=== PATIENT | male | born 1970 | race Caucasian/White ===

== ENCOUNTER 2023-08-10 11:23 | Emergency (ER) | payer OTHER, BC, SELFPAY ==
[2023-08-10] VITALS (10 sets, daily range): BP systolic 111–130; BP diastolic 64–77; PULSE 54–63; RESP 10–18; TEMP 36.6–36.7; O2SAT 94–100; BMI 29.6
--- NOTE | 2023-08-10 11:29 | RAD_ITS ---
STUDY: X-RAY - LEFT HAND REASON FOR EXAM: Male, 52 years old. Injury. TECHNIQUE: 4 views of the left hand. COMPARISON: None. FINDINGS: There are 2 partially threaded cannulated screws in the distal radius. Normal radiocarpal articulation. Normal distal radioulnar joint. Normal visualized carpal bones. Normal carpal articulations. There is mild degenerative arthrosis of the carpometacarpal (CMC) articulation of the thumb. Normal second through fifth carpometacarpal joints. Normal first through fourth metacarpals. There are comminuted fractures of the fifth metacarpal head/neck as well as base of the fifth proximal phalanx. There is dorsomedial subluxation/dislocation at the fifth MCP joint. Normal metacarpophalangeal joint of the thumb. Normal interphalangeal joint of the thumb. Normal proximal and distal phalanges of the thumb. Normal metacarpophalangeal joints of the second through fourth fingers. Normal proximal and distal interphalangeal joints of the second through fourth fingers. Normal phalanges of the second through fourth fingers. There is soft tissue swelling of the fifth digit. RAD/Hand Min 3 Views IMPRESSION: Comminuted fractures of the fifth metacarpal head/neck as well as base of the fifth proximal phalanx. Dorsomedial subluxation/dislocation at the fifth MCP joint. Soft tissue swelling of the fifth digit. Electronically Signed: Rafat Tomlin MD at 12:23 EDT ,
[2023-08-10] MEDS: HYDROmorphone 1 MG/ML Syringe IV ×3 (11:39→18:21)
[2023-08-10] MEDS: Ondansetron 4 MG/2 ML Vial IV (11:40)
[2023-08-10 11:46] LABS: Absolute Lymphocyte Count 1.82 X10^3/uL (0.83-4.51); Absolute Neutrophil Count 3.2 X10^3/uL (2.0-7.7); Basophil# 0.03 X10^3/uL; Basophil% 0.5 % (0-1); Eosinophil# 0.17 X10^3/uL; Hematocrit 39.4 % (40-54); Hemoglobin 12.9 g/dL (13.0-16.5); Lymphocyte # 1.82 X10^3/ul (0.83-4.51); Lymphocyte % 31.9 % (19-41); Mean Corp Hgb Conc 32.7 g/dL (32-36); Mean Corpuscular Hgb 28.8 pg (27.0-32.0); Mean Corpuscular Volume 87.9 fL (80-94); Mean Platelet Vol. 9.3 fl (6.2-12.0); Monocyte# 0.45 X10^3/uL; Monocyte% 7.9 % (0-10); NRBC Flagged by Analyzer 0 % (0-5); Neutrophil # 3.21 X10^3/uL (2.7-7.7); Neutrophil % 56.3 % (47-70); Platelet Count 262 K/mm3 (150-450); RBC Distribution Width CV 13.6 % (11.6-14.6); RBC Distribution Width SD 43.8 fl (35.1-43.9); Red Blood Count 4.48 M/mm3 (4.6-6.2); White Blood Count 5.7 K/mm3 (4.4-11.0)
[2023-08-10] MEDS: Cefazolin 1 GM/50 ML BAG IV (11:49)
[2023-08-10] MEDS: 0.9% Normal Saline (1000mL) 1,000 ML 999 ML IV (11:52)
--- NOTE | 2023-08-10 11:54 | EX.ED.GENINJ ---
HPI History of Present Illness Chief Complaint: Trauma Informant: patient and EMS Narrative Narrative: 52-year-old male presenting to the emergency room with left hand trauma. Patient was at work today at [employer] when he got his hand caught between a forklift and the metal cage. Notes inability to move the left little finger. He has some flexion of the ring finger. He denies symptomology of the long index or thumb finger. He notes no symptoms from the wrist proximally. He is not on a blood thinner. He does have a history of hypertension. He is not a diabetic. Patient is on Eliquis due to recurrent DVT Tetanus Immunization: <5 years [facility] Medical History (Updated 08/10/23 @ 13:[address] Ashwin Ya DO) Recurrent deep vein thrombosis (DVT) Hypertension Home Medications ?Medication ?Instructions ?Recorded ?Last Taken ?Type bupropion HCl 100 mg tablet,12 hr 100 mg PO ONCE 02/24/17 Unknown History sustained-release (Wellbutrin SR) lisinopril 20 mg tablet 20 mg PO ONCE 02/24/17 Unknown History metoprolol tartrate 25 mg tablet 25 mg PO ONCE 02/24/17 Unknown History apixaban 5 mg tablet (Eliquis) 5 mg PO BID 08/10/23 Unknown History Allergy/AdvReac Type Severity Reaction Status Date / Time No Known Allergies Allergy Verified 08/10/23 11:29 Social History Smoking Status: Former smoker quit date: 02/08/99 pack-years: 16 alcohol intake: current ROS ROS ED Constitutional Constitutional ED: Denies chills or weight loss Eyes Eyes: Denies change in vision or diplopia ENT ENT ED: Denies ear pain, rhinorrhea or sore throat Cardiovascular Cardiovascular: Denies chest pain, orthopnea, palpitations or racing heartbeat Respiratory/Chest Respiratory/Chest: Denies cough, dyspnea or orthopnea Gastrointestinal Gastrointestinal: Denies abdominal pain, diarrhea, nausea or vomiting Genitourinary Genitourinary ED: Denies dysuria, hematuria or urinary frequency Musculoskeletal Musculoskeletal: Reports other Details: See history of present illness ; Denies arthralgias or myalgias Integumentary Denies abscess or rash Neurologic Neurologic: Denies headache(s) or weakness Psychiatric Psychiatric: Denies anxiety, depression, suicidal ideation or suicidal thoughts Endocrine Endocrinology: Denies polydipsia, polyphagia or polyuria Allergic/Immunologic Allergic/Immunologic ED: Denies mouth swelling, tongue swelling or urticaria EXAM Physical Exam Narrative Exam Narrative: Patient appears in pain Const Vital Signs: 08/10/23 11:24 08/10/23 11:37 08/10/23 12:23 Temperature 98 F Temperature Source Temporal Pulse Rate 63 59 L Respiratory Rate 13 15 Respiratory Effort Normal Respiratory Depth Normal Respiratory Pattern Normal Blood Pressure 111/67 118/71 Blood Pressure Mean 81 86 Pulse Ox 97 96 Oxygen Delivery Method Room Air Room Air Room Air 08/10/23 13:10 08/10/23 14:00 08/10/23 15:00 Temperature Temperature Source Pulse Rate 54 L 56 L 61 Respiratory Rate 10 L 12 18 Respiratory Effort Respiratory Depth Respiratory Pattern Blood Pressure 122/74 H 130/72 H 127/77 H Blood Pressure Mean 90 91 93 Pulse Ox 98 98 100 Oxygen Delivery Method Room Air Room Air Positive well nourished and well developed General Appearance ED: well developed HEENT Reports normocephalic, head/scalp atraumatic and moist mucous membranes Eyes PERRL and EOMs intact bilaterally Neck no lymphadenopathy, supple and no JVD Resp normal respiratory effort and clear to auscultation bilaterally Cardio regular rate, regular rhythm and no murmurs GI normal to inspection, nondistended, normoactive bowel sounds and non-tender Palpation: soft Back/Spine no CVA tenderness and normal ROM Extremity Extremity Narrative: Left hand demonstrates about a 6 cm flap laceration along the mid fifth metacarpal extending down onto the little finger to about the middle phalanx. There is obvious fracture fragments and dislocation of the little finger. I can visualize flexor superficialis and profundus. Superficialis appears to have been severed with the split going to the middle phalanx still intact. Sensory he is intact. I am able to get some flexion of the ring finger but limited secondary to pain. He still has his ring on (this was removed) there is no active bleeding. The distal middle finger is still pink with good capillary refill. General Extremety ED: Negative for edema General Extremity: Negative for edema Neuro oriented x3 and CN's II-XII intact bilaterally Sensorium / Orientation: alert Motor Exam: strength 5/5 throughout Psych mental status grossly normal Mood & Affect: Negative for depressed or tearful Skin no rashes or lesions noted and no wounds MDM MDM MDM Narrative Medical decision making narrative: Differential diagnosis includes open fracture dislocation tendon disruption neurovascular injury, foreign bodies, crush injury Wet-to-dry dressing was placed. Patient received Ancef Dilaudid and Zofran as well as IV fluids. Hemoglobin 12.9 with a white count of 5.7. Creatinine 1.08 glucose 127. May depend interpretation of the plain films left hand is comminuted open fracture left fifth metacarpal left proximal phalanx. After reviewing the x-rays I spoke with [facility] to start arranging transfer as I feel he would benefit from surgical evaluation. Patient was placed in a well-padded ulnar gutter Ortho-Glass splint. He received additional pain medication. At this point we are awaiting acceptance to trauma center. I spoke initially with [facility]. I spoke with the PICU patient regarding their recommendations and then I spoke with [facility] transfer center. Awaiting consultation with [facility] hand. History & Record Review Discussion w/independent historian: Patient and Significant other Lab Data Attestation: I reviewed the patient's lab results. Labs: Laboratory Results - last 24 hr 08/10/23 11:40 WBC 5.7 RBC 4.48 L Hgb 12.9 L Hct 39.4 L MCV 87.9 MCH 28.8 MCHC 32.7 RDW Std Deviation 43.8 RDW Coeff of Arlet 13.6 Plt Count 262 MPV 9.3 Immature Gran % (Auto) 0.400 Neut % (Auto) 56.3 Lymph % (Auto) 31.9 Pratt % (Auto) 7.9 Eos % (Auto) 3.0 Baso % (Auto) 0.5 Absolute Neuts (auto) 3.2 Absolute Lymphs (auto) 1.82 Nucleated RBC % 0 Sodium 138 Potassium 4.1 Chloride 106 Carbon Dioxide 27.0 Anion Gap 5 BUN 30 H Creatinine 1.08 Estim Creat Clear Calc 99.28 Est GFR (MDRD) Af Amer 92 Est GFR (MDRD) Non-Af 76 BUN/Creatinine Ratio 27.8 H Glucose 127 H Calcium 8.9 Radiography Diagnostic Testing: Clinical Impression(s) from Imaging Studies Hand X-Ray 08/10/23 11:29 IMPRESSION: Comminuted fractures of the fifth metacarpal head/neck as well as base of the fifth proximal phalanx. Dorsomedial subluxation/dislocation at the fifth MCP joint. Soft tissue swelling of the fifth digit. Electronically Signed: Rafat Tomlin MD at 12:23 EDT , Management Discussion w/another healthcare provider: Motion Picture Projectionist Apprentice Discharge Plan Triage Chief Complaint: Trauma ED Provider: Ashwin Ya Dx/Rx/DC Orders Clinical Impression: Open fracture of metacarpal bone of left hand, Open fracture of proximal phalanx of left hand, Flexor tendon laceration of hand with open wound, Anticoagulated Prescriptions: No Action bupropion HCl [Wellbutrin SR] 100 mg tablet extended release 12 hr 100 mg PO ONCE lisinopril 20 mg tablet 20 mg PO ONCE metoprolol tartrate 25 mg tablet 25 mg PO ONCE Eliquis 5 mg tablet 5 mg PO BID Primary Care Provider: Yancy Márquez Referrals: Juan C Malloy PA [Med Staff - Adv Practice Prof] - Print Language: Lithuanian Disposition Disposition: Acute Care Hospital Discharge Location: [facility]
[2023-08-10 11:58] LABS: Anion Gap 5 (5-15); BUN 30 mg/dL (7-18); BUN/Creat Ratio 27.8 RATIO (10-20); Calcium,Total 8.9 mg/dL (8.5-10.1); Chloride 106 mmol/L (98-107); Creatinine, Serum 1.08 mg/dL (0.70-1.30); EST Glomerular Filtration Rate 76 mL/min (>60); Est Glom Filt Rate - Afr Amer 92 mL/min (>60); Estimated Creatinine Clearance 99.28 ml/min; Glucose 127 mg/dL (74-106); Potassium 4.1 mmol/L (3.5-5.1); Sodium Level 138 mmol/L (136-145)
--- NOTE | 2023-08-10 13:21 | ED.RN ---
Spoke with Linda Browning in [facility]. Patient does not need drugged tested.
--- NOTE | 2023-08-10 17:17 | NURSING ---
CALLED [facility], ETA IS 3 HRS
== END 2023-08-10 20:03 | disposition short-term general hospital (02) ==
PROVIDERS: Emergency Provider Emergency Medicine; Visit Provider Emergency Medicine
DX: S62.337B Displaced fracture of neck of fifth metacarpal bone, left hand, initial encounter for open fracture (principal); Z79.01 Long term (current) use of anticoagulants; I10 Essential (primary) hypertension; Z87.891 Personal history of nicotine dependence; S67.22XA Crushing injury of left hand, initial encounter; Z86.718 Personal history of other venous thrombosis and embolism; S62.615B Displaced fracture of proximal phalanx of left ring finger, initial encounter for open fracture; W24.0XXA Contact with lifting devices, not elsewhere classified, initial encounter; Y99.0 Civilian activity done for income or pay
CPT/HCPCS: 73130; 80048; 85025; 96365; 96366; 96375; 96376; 99285; J7030; J2405

== ENCOUNTER 2024-04-17 16:00 | Outpatient (RCR) | payer OTHER, SELFPAY ==
--- NOTE | 2023-11-11 08:56 | HP.OTEVAL ---
Patient's Visit Information Visit Information Visit Information: LISA MONROY is a 53 year old M, referred to Occupational Therapy by YONG TORIBIO, with a diagnosis of left hand phalangeal shaft fx, tenson laceration. Date of Evaluation: 11/10/23 Occupational Therapist: Juhi Cifuentes, SHUNR/Pablo, CHT Subjective Subjective: This 53 year old male was seen for OT eval with dx of left hand crush injury with tendon and nerve injury on August 10, 2023. Pt went to [facility] and was able to have sx on August 17 2023. Pt arrives now 12 weeks s/p from [facility]. pt had ORIF of left SM metacarpal head Fx, ORIF small SM communicated P1 Intra-articular with bone loss Left SM zone 2 FDS repair ulnar slip Left SM finger ulnar digital nerve laceration repair pt is right handed pt arrives with orthosis ( needs adj to increase comfort and fit) pt reports he is doing a HEP that his [facility] therapist gave him- PROM-AROM- and strengthening. pt states he would like to improve his ROM to be able to put a glove on. Pain left hand: Current Pain Intensity: 4 Pain Intensity Range: 2 and 5 ROM MP: left LF 0/40 right 0/90 PIP: left LF -55/60 right 0/95 DIP: left LF 0/0 right 0/65 ROM Comments: pt demo with a TROM of left LF PIP of 5* Strength Aircraft Mechanic Armament: left 45# right 100# Lateral Pinch: left 20# right 22# Tripod Pinch: left 22# left 22# Sensation Sensation Comments: denies Quick DASH-Disab of Arm,Shoulder& Hand Quick DASH Score: 31.6650 Goals Goal:Daily scar massage when approriate: Yes Goal:ROM equal to unaffected hand: Yes Goal:Aircraft Mechanic Armament/Pinch strength at least 75% of unaffected hand: Yes Goal:No pain with affected hand use: Yes Goal:Full use of affected hand in daily activities including work: Yes Goal:Decrease scar hypersensitivity: Yes Rehabilitation General Assessment: pt demo with hypertrophic scar of left LF and PIP joint tightness limiting pts ability to form a composite fist. PT would benefit from further skilled OT services 2x week for 8 weeks to increase pts functional ROM to return pt to use of left hand with ADLs and IADLs. Rehabilitation Potential: Good Anticipated Interventions Anticipated Interventions: A/AAROM/PROM, Strengthening, Scar Care, Triggerpoint Release, Modalities, Orthoses, Joint Protection/Energy Conservation, Ergonomic Education, Education re assistive Equipment, Education re Diagnosis and Home Program Visit Plan Frequency: 2x /Week Duration: 2 Months TEXT: Thank you for the opportunity to evaluate your patient. For Medicare and Medicare HMO plans, please review the plan of care and approve it. It will need to be FAXED BACK to us at [phone] for Medicare purposes. Please let me know if there are questions or concerns regarding this plan of care. Physician Signature: Date:
--- NOTE | 2023-12-06 16:58 | OTREVAL_ITS ---
Re-Evaluation Intro: YONG TORIBIO, It has been my pleasure to treat LISA MONROY over the last 7 visits for left hand phalangeal shaft fx, tenson laceration. Please see the progress note below for an update on the occupational therapy plan of care! Subjective Subjective: pt arrives to session- states he feels he is getting use to his finger- frustrated he has made no gains in motion- Objective Objective/Function: Left RF MCP +10/75 PIP +5/100 LF MCP 0/70 PIP -55/65 pt has not made gains in ROM left mathematical sciences professor strength 70# increase from 45# right mathematical sciences professor strength 95# Plan Plan Frequency: 2x /Week Duration: 2 Months Plan: cont tx Goals Goals Patient Goals: Regain Mobility, Improve Fine Motor Skills, Use Hand/Wrist/Arm Normally Again and Be More Independent in ADLS Goal:Daily scar massage when approriate: Yes Goal:ROM equal to unaffected hand: Yes Goal:Dye Boarding Machine Operator/Pinch strength at least 75% of unaffected hand: Yes Goal:No pain with affected hand use: Yes Goal:Full use of affected hand in daily activities including work: Yes Goal:Decrease scar hypersensitivity: Yes Anticipated Interventions Anticipated Interventions Anticipated Interventions: A/AAROM/PROM, Strengthening, Scar Care, Triggerpoint Release, Modalities, Orthoses, Joint Protection/Energy Conservation, Ergonomic Education, Education re assistive Equipment, Education re Diagnosis and Home Program Re-Evaluation Ending Re-evaluation ending: Please do not hesitate to contact me at [phone] by phone or if you have questions or concerns regarding this new plan of care! Sincerely, Juhi Cifuentes, OTR/L, CHT
--- NOTE | 2024-02-08 11:12 | HP.OTREVAL ---
Re-Evaluation Intro: YONG TORIBIO, It has been my pleasure to treat LISA MONROY over the last 15 visits for left hand phalangeal shaft fx, tenson laceration. Please see the progress note below for an update on the occupational therapy plan of care! Subjective Subjective: pt arrives states he is not noticing any change in his ROM states his finger is not getting in the way with work. states he still has some trouble opening a jar lid - just difficulty Objective Objective/Function: L LF -65/ 70 after therapy active left LF -45 with passive stretch left airworthiness inspector strength 80# Plan Plan Frequency: 2x /Week Duration: 2 Months Plan: LMB scar Goals Goals Patient Goals: Regain Mobility, Improve Fine Motor Skills, Use Hand/Wrist/Arm Normally Again and Be More Independent in ADLS Goal:Daily scar massage when approriate: Yes Goal:ROM equal to unaffected hand: Yes Goal:Roller Printing Supervisor/Pinch strength at least 75% of unaffected hand: Yes Goal:No pain with affected hand use: Yes Goal:Full use of affected hand in daily activities including work: Yes Goal:Decrease scar hypersensitivity: Yes Anticipated Interventions Anticipated Interventions Anticipated Interventions: A/AAROM/PROM, Strengthening, Scar Care, Triggerpoint Release, Modalities, Orthoses, Joint Protection/Energy Conservation, Ergonomic Education, Education re assistive Equipment, Education re Diagnosis and Home Program Re-Evaluation Ending Re-evaluation ending: Please do not hesitate to contact me at [phone] by phone or if you have questions or concerns regarding this new plan of care! Sincerely, Juhi Cifuentes, OTR/L, CHT
--- NOTE | 2024-04-17 16:22 | HP.OTDCSUM_ITS ---
Discharge Summary D/C Summary: It has been my pleasure to treat LISA MONROY under orders from YONG TORIBIO, for the diagnosis of left hand phalangeal shaft fx, tenson laceration for a total of 12 visit(s). Please see the following information for a summary of their discharge status. Overall Improvement % Improvement: 70 Objective Objective/Function: L LF PIP AROM -55/70* for LILLY of 15* left territory manager strength 90# Passive left LF PIP ext. therapist can get -25/70 despite aggressive ROM pt has not made consistent gains. pt states he can now put his hand in his pocket without to much difficulty and he can put a glove on. Goals Patient Goals: Regain Mobility, Improve Fine Motor Skills, Use Hand/Wrist/Arm Normally Again and Be More Independent in ADLS Goal:Daily scar massage when approriate: Yes Goal Progress: Goal Met Goal:ROM equal to unaffected hand: Yes Goal:Heavy Equipment Operator/Paver/Pinch strength at least 75% of unaffected hand: Yes Goal Progress: Goal Met Goal:No pain with affected hand use: Yes Goal Progress: Goal Met Goal:Full use of affected hand in daily activities including work: Yes Goal Progress: Progressing Goal:Decrease scar hypersensitivity: Yes Goal Progress: Goal Met Plan Plan: pt to return to Due to no further C9 approval pt is d/c at this time. D/C Information Discharge Comments: pt was seen for his approved 12 OT session. d/c sentence: If there are questions or concerns regarding this patient's occupational therapy, please fell free to call me at [phone]. Thank you for the referral of this patient. Sincerely, Juhi Cifuentes, OTR/L, CHT
== END 2024-04-17 19:00 | disposition home or self-care (01) ==
LOC: OT 16:00
DX: S62.92XB Unspecified fracture of left hand, initial encounter for open fracture (principal)
CPT/HCPCS: 97035; 97110; 97140; 97166; 97530